=== PATIENT | female | born 1970 | race Caucasian/White ===

== ENCOUNTER → 2017-10-02 16:00 | Outpatient (CLI) | payer MEDICAID, SELFPAY ==
[2017-10-03 15:13] LABS: Color, Urine Yellow (Yellow); Glucose, Dipstick Normal (Normal); Ketone-Dipstick 5 mg/dl (Negative); Leukocyte Esterase-Dipstick 25 /ul (Negative); Nitrite-Dipstick Negative (Negative); Occult Blood-Urine 50 /ul (Negative); Protein-Dipstick 15 mg/dl (Negative); Urine Bilirubin Dipstick 1 mg/dL (Negative); Urine Clarity Clear (Clear); Urine Urobilinogen 1 mg/dl (Normal)
[2017-10-03 15:17] LABS: Bacteria 0 SEEN /hpf (None Seen); Mucous, Urine 0 SEEN /hpf (<or=2+); Red Blood Cells-Urine 0 SEEN /hpf (0-5)
[2017-10-03 15:18] LABS: Calcium Oxalate Crystals Ur 1+ /hpf (<or=2+); Squamous Epithelial Cells - UA 0-5 SEEN /hpf (5-10); White Blood Cells 0-5 SEEN /hpf (0-5)
== END ==
PROVIDERS: Visit Provider Physician Assistant Surgical
DX: R10.9 Unspecified abdominal pain (principal)
CPT/HCPCS: 81001; 87086

== ENCOUNTER → 2017-10-09 09:58 | Outpatient (CLI) | payer MEDICAID, SELFPAY ==
--- NOTE | 2017-10-09 10:03 | US_ITS ---
STUDY: ABDOMINAL ULTRASOUND - RIGHT UPPER QUADRANT REASON FOR VISIT: Female, 47 years old. Right upper quadrant pain. TECHNIQUE: Ultrasound evaluation of the right upper quadrant was performed with real-time and static lombardi-scale imaging. TECHNICAL QUALITY: Adequate. COMPARISON: 09/13/2015. FINDINGS: Liver: The liver measures 16 cm. There is normal echogenicity of the liver. The bile ducts are within normal limits. There is hepatic color flow. The direction of portal flow is hepatopetal. There is a 2.3 cm cyst of the right lobe. Gallbladder: The patient is status post cholecystectomy. Common Bile Duct (C.B.D.): The common bile duct measures 8 mm. Pancreas: Normal size of the head, body and tail of the pancreas. There is normal echogenicity of the pancreas. There is no demonstrated pancreatic mass or cyst. Right Kidney: Normal size of the right kidney. The right kidney measures 11.2 cm. Normal renal cortex. The right cortex measures 1.7 cm. There is no demonstrated renal mass or cyst. There is no right hydronephrosis. US/Abdomen Limited IMPRESSION: Mild distention of common bile duct status post cholecystectomy. No definite acute abnormality. Electronically Signed: Delmar Simpson MD at 22:01 EDT , Service support ,
[2017-10-09 13:59] LABS: Absolute Lymphocyte Count 3.85 X10^3/ul (0.83-4.51); Absolute Neutrophil Count 2.8 X10^3/uL (2.0-7.7); Basophil# 0.12 X10^3/uL; Basophil% 1.6 % (0-1); Eosinophil# 0.17 X10^3/uL; Eosinophils% 2.2 % (0-5); Hematocrit 40.7 % (37-47); Hemoglobin 13.8 g/dl (12.0-15.0); Lymphocyte # 3.85 X10^3/ul (4.0); Lymphocyte % 49.9 % (19-41); Mean Corp Hgb Conc 33.9 g/gl (32-36); Mean Corpuscular Hgb 28.6 pg (27.0-32.0); Mean Corpuscular Volume 84.3 fL (81-99); Monocyte# 0.74 X10^3/uL; Monocyte% 9.6 % (0-10); Neutrophil # 2.83 X10^3/uL (2.7-7.7); Neutrophil % 36.6 % (47-70); Platelet Count 198 K/mm3 (150-450); Red Blood Count 4.83 M/mm3 (4.2-5.4); White Blood Count 7.7 K/mm3 (4.4-11.0)
[2017-10-09 14:00] LABS: POSITIVE COUNT NO; POSITIVE DIFFERENTIAL NO; POSITIVE MORPHOLOGY NO
[2017-10-09 14:09] LABS: ALB/GLOB Ratio 0.9 RATIO (0.9-2.4); AST(SGOT) 86 U/L (15-37); Alanine Aminotransfer ALT/SGPT 113 U/L (13-56); Albumin, Serum 2.9 g/dL (3.2-5.0); Alkaline Phosphatase 106 U/L (45-117); Anion Gap 6 (5-15); BUN 7 mg/dL (7-18); BUN/Creat Ratio 10.2 RATIO (10-20); Chloride 107 mmol/L (98-107); Creatinine, Serum 0.68 mg/dL (0.55-1.02); EST Glomerular Filtration Rate 97 mL/min (>60); Est Glom Filt Rate - Afr Amer 118 mL/min (>60); Globulin 3.3 g/dL (2.2-4.2); Glucose 99 mg/dL (74-106); Potassium 4.3 mmol/L (3.5-5.1); Protein, Total 6.2 g/dL (6.4-8.2); Sodium Level 140 mmol/L (136-145)
== END ==
PROVIDERS: Family Medicine; Family Provider Internal Medicine; PCP Internal Medicine; Visit Provider Internal Medicine
DX: R10.11 Right upper quadrant pain (principal)
CPT/HCPCS: 36415; 76705; 80053; 85025

== ENCOUNTER 2017-10-14 21:10 | Inpatient (IN) | payer MEDICAID, SELFPAY ==
[2017-10-14 21:10] VITALS: BP 104/68; PULSE 110; RESP 18; TEMP 37.1; O2SAT 96; BMI 33.5
--- NOTE | 2017-10-14 21:19 | EKG12_ITS ---
Test Reason : SOB Blood Pressure : / mmHG Vent. Rate : 096 BPM Atrial Rate : 096 BPM P-R Int : 138 ms QRS Dur : 086 ms QT Int : 338 ms P-R-T Axes : 063 038 017 degrees QTc Int : 427 ms Normal sinus rhythm Low voltage QRS (limb leads) Confirmed by UDAY SEVERINO, EDMI ([id number]), website/blog editor JESUS ELLIOTT ([id number]) on 10/17/2017 2:47:39 PM Referred By: Alcides Elder Confirmed By:DEMI FRYE MD
--- NOTE | 2017-10-14 21:19 | CT_ITS ---
STUDY: CTA CHEST REASON FOR EXAM: Female, 47 years old. SOB RADIATION DOSAGE (If Supplied By Facility): CTDIvol = ( 17.56 ) mGy, DLP = ( 636.43 ) mGycm TECHNIQUE: The examination was performed with the intravenous administration of 100 ml of Isovue 370 contrast material. Post-processing of the angiographic images was performed, with multiplanar reformation and 3D reconstruction. Individualized dose optimization techniques were used for this CT. COMPARISON: None. FINDINGS: The contrast bolus is suboptimal for detecting small or distal pulmonary emboli. Emboli cannot be excluded involving the artery of the right lower lobe anterior basilar segment. No large or central pulmonary emboli are seen. Normal thoracic aorta and visualized great vessels. There is no demonstrated aortic dissection. Normal heart and pericardium. Normal mediastinum. Normal hilar regions. Normal visualized trachea and bronchi. Focal right lower lobe alveolar disease could represent pneumonia or pulmonary infarct. Normal pleura. Normal chest wall structures. Normal osseous structures. Normal visualized upper abdomen. CT/CTA Chest W/WO Contrast IMPRESSION: The contrast bolus is suboptimal for detecting small or distal pulmonary emboli. Emboli cannot be excluded involving the artery of the right lower lobe anterior basilar segment. No large or central pulmonary emboli are seen. Focal right lower lobe anterior basal segment pneumonia versus pulmonary infarct. N.B. : The above information has been verbally conveyed by Estiven De La oRsa MD to James Wilkinson, Covering Physician, on 10/14/2017 22:15:20 (ET). Electronically Signed: Estiven De La Rosa MD at 22:20 EDT Tel , Service support , N.B. : The above information has been verbally conveyed by Estiven De La Rosa MD to James Wilkinson, Covering Physician, on 10/14/2017 22:15:20 (ET).
--- NOTE | 2017-10-14 21:21 | ED.VISSUMM ---
- ER Visit Summary Date of Service: 10/14/17 Chief Complaint: Shortness of breath History of Present Illness: The patient is a 47 F who presents with shortness of breath. Started today. She has been having some sharp pains under her right breast. 4 days ago she started having some calf pain but that has since resolved. She has had a slight cough. It is productive of clear sputum. She has no cardiac history. She is concerned about PE as her father has terrible veins. He is on Coumadin. Patient has no DVT or PE risk factors. Physical Examination: Vital signs reviewed. HEENT exam unremarkable. Heart is regular rate and rhythm without murmurs. Lungs are clear to auscultation. Abdomen is soft and nontender. Extremities reveal no edema. Peripheral pulses are equal. Skin exam normal. Neurologic exam normal. Test Results: EKG normal sinus rhythm with rate of [address] changes. Labs are normal. CT of the chest is a suboptimal IV dye bolus. There is a questionable PE in the right lower segment. There is also a question of pneumonia versus infarct of the right lower lobe Emergency Department Course and Treatment: I discussed this with the radiologist. He is concerned about PE but cannot rule out a pneumonia. At this point I feel the safest for the patient be admitted and get further testing. I will treat her with 1 dose of Lovenox tonight. I will start her on Levaquin in case this is pneumonia. Patient will be discussed with the hospitalist for admission Treatment Plan: [] Disposition: Admit Impression: Right lower chest pain, concern for PE This note was generated with [facility] [employer] dictation software. It may contain incorrect words, spelling, and punctuation that were not noted in review of the chart prior to signing ED Disposition - Plan for ED Patient: Chief Complaint: Shortness of Breath Referrals: Alcides Elder MD [Primary Care Provider] -
[2017-10-14 21:30] VITALS: BP 151/66; PULSE 90; RESP 18; O2SAT 98
[2017-10-14] MEDS: Aspirin 81 MG TAB.CHEW 324 MG PO (21:33)
[2017-10-14 21:35] VITALS: O2SAT 95
[2017-10-14 21:41] LABS: Absolute Lymphocyte Count 3.21 X10^3/ul (0.83-4.51); Basophil# 0.03 X10^3/uL; Basophil% 0.4 % (0-1); Eosinophil# 0.14 X10^3/uL; Eosinophils% 1.7 % (0-5); Hematocrit 40.6 % (37-47); Hemoglobin 13.2 g/dl (12.0-15.0); Lymphocyte # 3.21 X10^3/ul (4.0); Lymphocyte % 39.9 % (19-41); Mean Corp Hgb Conc 32.5 g/gl (32-36); Mean Corpuscular Hgb 27.6 pg (27.0-32.0); Mean Corpuscular Volume 84.8 fL (81-99); Monocyte# 0.69 X10^3/uL; Monocyte% 8.6 % (0-10); Neutrophil # 3.97 X10^3/uL (2.7-7.7); Neutrophil % 49.3 % (47-70); Platelet Count 220 K/mm3 (150-450); RBC Distribution Width SD 43.9 fl (35.1-43.9); Red Blood Count 4.79 M/mm3 (4.2-5.4); White Blood Count 8.1 K/mm3 (4.4-11.0)
[2017-10-14 21:44] LABS: POSITIVE COUNT NO; POSITIVE DIFFERENTIAL NO; POSITIVE MORPHOLOGY NO
[2017-10-14 21:57] LABS: Anion Gap 5 (5-15); BUN 7 mg/dL (7-18); BUN/Creat Ratio 9.4 RATIO (10-20); Calcium,Total 8.2 mg/dL (8.5-10.1); Chloride 106 mmol/L (98-107); Creatinine, Serum 0.74 mg/dL (0.55-1.02); EST Glomerular Filtration Rate 89 mL/min (>60); Est Glom Filt Rate - Afr Amer 107 mL/min (>60); Estimated Creatinine Clearance 93.79 ml/min; Glucose 93 mg/dL (74-106); Sodium Level 139 mmol/L (136-145)
[2017-10-14 22:24] VITALS: BP 109/62; PULSE 88; RESP 14; O2SAT 95
[2017-10-14 22:30] VITALS: BP 107/68; PULSE 86; RESP 17; O2SAT 97
[2017-10-14] MEDS: Enoxaparin 100 MG/ML Syringe SC (22:51)
[2017-10-14] MEDS: levoFLOXacin IV 750 MG/150 ML BAG 100 MG IV (22:51)
[2017-10-14 23:03] VITALS: BP 120/67; PULSE 87; RESP 18; O2SAT 94
--- NOTE | 2017-10-14 23:41 | PCM.HP.STD ---
Problem List (1) Pulmonary embolus and infarction Status: Acute (2) CAP (community acquired pneumonia) Status: Acute (3) Hematuria of undiagnosed cause Status: Acute (4) Right upper quadrant abdominal pain Status: Chronic History of Present Illness Date of Admission: 10/14/17 Chief Complaint: Right leg pain The patient is a 47 year old female w/ h/o abdominal pain admitted for CAP / PE. Pt c/o right calf pain that started on Sunday / Sunday. Pain was mild, aching. Pain resolved after a day or two but came back. Pain was associated with right breast pain and epigastric pain. Pain was dull aching. Nothing made it better or worse. Pain was not associated with SOB or palpitation. She has a family history of vascular disease and came to the ED for further workup. Past Medical History Past Medical History (Chronic Problems): Chronic Problems (Last Reviewed 10/04/17 @ 17:33 by Vandana Sutton) Right upper quadrant abdominal pain (Chronic) Allergies latex Allergy (Verified 10/14/17 21:10) Unknown Penicillins Allergy (Verified 10/14/17 21:10) Unknown Home Medications: Ambulatory Orders Medication Instructions Recorded RX: Cholecalciferol (Vitamin D3) 2,000 unit PO DAILY 06/17/16 [Vitamin D3] RX: Multivitamin [Daily Multiple 1 ea PO DAILY 06/17/16 Vitamin] RX: [place]-3 Fatty Acids [Fish Oil] 1,000 mg PO DAILY 06/17/16 Surgical History: - - Tubal ligation Psychiatric History: No pertinent psych hx PROCESSOR GRAIN History: No pertinent PROCESSOR GRAIN history Smoking Status: Current every day smoker Alcohol: None Drugs: None - *Family History Paternal History Items: - - Vascular disease Review of Systems Constitutional: Denies: Chills, Fever, Weight Change HEENT: Denies: Head Aches, Sinus Congestion, Sinus Drainage Cardiovascular: Denies: Chest Pain, Palpitations Respiratory: Reports: Cough, Sputum production. Denies: Shortness of breath at rest Gastrointestinal: Denies: Abdominal Pain, Nausea, Vomiting Genitourinary: Denies: Dysuria Musculoskeletal: Reports: Muscle pain. Denies: Joint Pain, Joint Tenderness Skin: Denies: Rash, Wounds Neurological: Denies: Numbness, Tingling, Focal weakness Psychiatric: Denies: Anxiety, Depression, Homicidal Ideations, Suicidal Ideations Hematologic/ Lymphatic: Denies: Easy Bruising, Easy Bleeding VTE Information - Inpt Only VTE Present on Admission: No VTE Mechan Device Prophylaxis: SCD's VTE Pharm Prophylaxis ordered?: Yes Patient Problems: Active and Suspected Problems (Last Reviewed 10/04/17 @ 17:33 by Vandana Sutton) Pulmonary embolus and infarction (Acute) CAP (community acquired pneumonia) (Acute) - Physical Exam General: Alert, Oriented x3, Cooperative HEENT: Atraumatic, PERRLA, EOMI, Normocephalic Neck: Supple, No JVD, Negative Carotid Bruits Lungs: Diminished, Rales Cardiovascular: Regular rate, No murmurs Abdomen: Bowel Sounds Present, Soft, Non Tender Extremities: No edema, Capillary Refill Less than 3 Seconds Skin: No rashes, No breakdown Musculoskeletal: No Tenderness to Palpation of Joints or Extremities Neurological: Cranial nerves II-XII grossly intact Psych/Mental Status: Normal Affect, Appropriate Vital Signs Temp Pulse Resp BP Pulse Ox 98.7 F 87 18 120/67 94 10/14/17 21:10 10/14/17 23:03 10/14/17 23:03 10/14/17 23:03 10/14/17 23:03 Oxygen Delivery Method Room Air Weight: 100 kg Body Mass Index (BMI) 33.5 Laboratory Tests Past 24 Hrs 10/14/17 10/14/17 21:27 21:27 WBC 8.1 RBC 4.79 Hgb 13.2 Hct 40.6 MCV 84.8 MCH 27.6 MCHC 32.5 RDW 14.0 RDW Differential 43.9 Plt Count 220 MPV 9.0 Immature Gran % (Auto) 0.100 Neut % (Auto) 49.3 Lymph % (Auto) 39.9 [place] % (Auto) 8.6 Eos % (Auto) 1.7 Baso % (Auto) 0.4 Absolute Neuts (auto) 4.0 Absolute Lymphs (auto) 3.21 Total Counted Not Reportable Sodium 139 Potassium 4.0 Chloride 106 Carbon Dioxide 28.0 Anion Gap 5 BUN 7 Creatinine 0.74 Estim Creat Clear Calc 93.79 Est GFR (MDRD) Af Amer 107 Est GFR (MDRD) Non-Af 89 BUN/Creatinine Ratio 9.4 L Glucose 93 Calcium 8.2 L Troponin I < 0.015 Assessment/Plan Active and Suspected Problems (Last Reviewed 10/04/17 @ 17:33 by Vandana Sutton) Pulmonary embolus and infarction (Acute) CAP (community acquired pneumonia) (Acute) 47 year old female w/ h/o abdominal pain admitted for CAP / PE. 1) PE: CT disclosed questionable PE / pneumonia / infarct. Will anticoagulate. Will repeat CTA after 24 hrs. C/w hydration. 2) CAP: She has cough but no fever or chill. Will start ceftriaxone and azithromycin. Cultures pending. Monitor. 3) Right leg pain: Will get US to evaluate for possible DVT. Anticoagulate in the meantime. Monitor.
[2017-10-15] VITALS (12 sets, daily range): BP systolic 97–132; BP diastolic 48–74; PULSE 85–95; RESP 12–18; TEMP 37–37.7; O2SAT 93–98; BMI 32.8
[2017-10-15] MEDS: 0.9% Normal Saline 1,000 ML 125 ML IV ×2 (01:15→09:09)
[2017-10-15 02:32] LABS: Color, Urine Yellow (Yellow); Glucose, Dipstick Normal (Normal); Ketone-Dipstick Negative (Negative); Leukocyte Esterase-Dipstick Negative /ul (Negative); Nitrite-Dipstick Negative (Negative); Occult Blood-Urine 10 /ul (Negative); Protein-Dipstick 15 mg/dl (Negative); Urine Bilirubin Dipstick Negative (Negative); Urine Clarity Sl. Cloudy (Clear); Urine Urobilinogen Normal (Normal); Urine pH 6.5 (5.0 - 8.0)
--- NOTE | 2017-10-15 05:55 | VDLE_ITS ---
Reason For Study: LEG PAIN RIGHT LEFT GSV is normal. GSV is normal. CFV is compressible, spontaneous, phasic, CFV is compressible, spontaneous, phasic, competent and demonstrates normal competent, and demonstrates normal augmentation. augmentation. FV is compressible, spontaneous, phasic, FV is compressible, spontaneous, phasic, competent and demonstrates normal competent and demonstrates normal augmentation. augmentation. POP V is compressible, spontaneous, phasic, POP V is compressible, spontaneous, phasic, competent and demonstrates normal competent and demonstrates normal augmentation. augmentation. T/P Trunk is compressible. T/P Trunk is compressible. PTV is compressible. PTV is compressible. Acute deep vein thrombosis is noted in the LT PerV is compressible. right peroneal vein. Procedure Exam performed portable in patient room. A preliminary report was called and/or faxed to [facility] charge nurse. Interpretation Summary Acute deep vein thrombosis is noted in the right peroneal vein. The remainder of the right lower extremity deep venous system is patent and compressible. Deep veins of the left lower extremity are patent and compressible segmentally. There is no evidence of left lower extremity deep vein thrombosis. Valvular competence appears intact within the proximal deep venous systems bilaterally. The greater saphenous veins appear bilaterally patent and compressible segmentally. Ordering Physician: Elaido Motley Referring Physician: Alcides Elder Performed By: Shruthi Rod RVT
[2017-10-15] MEDS: levoFLOXacin IV 500 MG/100 ML BAG 100 MG IV (09:09)
[2017-10-15] MEDS: Multivitamins,Therapeutic Tablet 1 TABLET PO (09:10)
[2017-10-15] MEDS: Omega-3 Acid Ethyl Esters 1 GM Capsule PO (09:10)
[2017-10-15] MEDS: Enoxaparin 100 MG/ML Syringe SC ×2 (09:10→22:37)
--- NOTE | 2017-10-15 13:27 | PCM.PROGNOTE ---
Patient Problems: Active and Suspected Problems (Last Reviewed 10/04/17 @ 17:33 by Vandana Sutton) Pulmonary embolus and infarction (Acute) CAP (community acquired pneumonia) (Acute) Subjective: Patient is a 47-year-old female presented to the emergency department at [facility] on 10/14/2017 complaining of right chest pain and shortness of breath. She was afebrile at presentation to the emergency room with a heart rate of 110 bpm and a blood pressure of 104/68. She was 96-98% saturated on room air. CBC and BMP were unremarkable. Troponin was less than 0.015. Since there was a history of VTE and her father a CTA of the chest was done and was a less than optimal study. There were no large or central pulmonary emboli but the contrast bolus was suboptimal for detecting smaller distal pulmonary emboli. She does have DVT in the right peroneal vein on venous US. Hypercoagulable W/U was not ordered prior to starting Lovenox. Continues to c/o r chest pain which is exacerbated by taking a deep breath. She is also having right calf pain. Denies hemoptysis. She is afebrile and vital signs are stable. She is 93-94% saturated on room air. Objective: PHYSICAL EXAM: GENERAL: alert, oriented X 3, Cooperative, NAD ORAL: moist mucosa, no mucosal lesions NECK: No JVD, supple, trachea midline LUNGS: there were initially decreased breath sounds in the R base because she is splinting her respirations....when she finally took a deep breath she had coarse crackles in the R base, the left lung is CTA, symmetric chest expansion, conversational dyspnea, not tachypneic, no accessory muscle use HEART: RRR, Normal S1 and S2, no rub, no gallop, no murmur ABDOMEN: soft, NT, ND, BS present, no guarding with palpation EXTREMITIES: no edema, no cyanosis, + R calf tenderness SKIN: No rashes, no breakdown NEUROLOGIC: no focal neurologic deficits PSYCH: appropriate, normal affect, pleasant TELEMETRY: NSR with no significant ectopy - Physical Exam Lungs: Rales - R base Vital Signs Temp Pulse Resp BP Pulse Ox 99.0 F 93 12 116/59 L 94 10/15/17 09:19 10/15/17 11:00 10/15/17 09:19 10/15/17 09:19 10/15/17 09:19 Oxygen Delivery Method Room Air Weight: 222 lb 7.143 oz Body Mass Index (BMI) 32.8 Intake and Output for Last 24 Hours 10/13/17 10/14/17 10/15/17 23:59 23:59 23:59 Intake Total 2260 / 2260 Output Total 2 / 2 Balance 2258 / 2258 Microbiology Past 72 Hours 10/15/17 02:05 Streptococcus pneumoniae Antigen (M - Final Urine, Clean Catch 10/15/17 02:05 Legionella Antigen - Final Urine, Clean Catch 10/15/17 00:45 Influenza Types A,B Direct FA (SUSY) - Final Mucosa - Nose Laboratory Tests Past 24 Hrs 10/15/17 02:05 Urine Color Yellow Urine Clarity Sl. Cloudy Urine pH 6.5 Ur Specific [place] 1.010 Urine Protein 15 H Urine Glucose (UA) Normal Urine Ketones Negative Urine Occult Blood 10 H Urine Nitrite Negative Urine Bilirubin Negative Urine Urobilinogen Normal Ur Leukocyte Esterase Negative Medical Necessity - Tobacco Use Smoking Status: Current every day smoker Assessment/Plan Active and Suspected Problems (Last Reviewed 10/04/17 @ 17:33 by Vandana Sutton) Pulmonary embolus and infarction (Acute) CAP (community acquired pneumonia) (Acute) Impression: 1. R LE DVT with suspected PE. Will not repeat the CT scan and expose her to unnecessary dye. Clinically presentation and physical findings are consistent with a PE. 2. obesity 3. Tobacco dependence 4.. possible FH of a hypercoagulable disorder 5. CAP ruled out Smoking cessation counselling given Will need a hypercoagulable W/U at the conclusion of 6 months of anticoagulation Will check on the co-pay for Xarelto in the AM and likely DC on Xarelto Continue Lovenox for now. IS and encouraged her to do this hourly for 10 breaths while awake DC the antibiotics Code Visit Inpatient E&M: 79185 Subs Hosp L2
[2017-10-15] MEDS: HYDROcodone Bitartrate/Apap 5/325 Tablet PO (15:55)
[2017-10-16] VITALS (7 sets, daily range): BP systolic 111–131; BP diastolic 52–62; PULSE 78–88; RESP 14–16; TEMP 36.7–37.3; O2SAT 95–97
[2017-10-16] MEDS: Omega-3 Acid Ethyl Esters 1 GM Capsule PO (08:53)
[2017-10-16] MEDS: Multivitamins,Therapeutic Tablet 1 TABLET PO (08:54)
[2017-10-16] MEDS: Enoxaparin 100 MG/ML Syringe SC (08:54)
--- NOTE | 2017-10-16 09:46 | CASEMGMT ---
Per Dr. Acevedo, pt to be sent home on Funium and script sent to [facility] at this time. This RN CM will place call to [facility] to check burt. SStanna RN CM
--- NOTE | 2017-10-16 11:25 | CASEMGMT ---
This BEATA MILLER spoke with Yasmeen at [facility] and she states that pt has no co-pay for Xarelto at this time. Dr. Acevedo aware at this time. Emily COTA CM
--- NOTE | 2017-10-16 11:43 | CASEMGMT ---
Face to Face with patient for initial transition planning/care coordination assessment. BEATA MILLER introduced self and role at [facility], pt voices understanding and consents to assessment at this time. Pt is sitting up in bed in no distress at this time. Pt is A/O x4 at this time and answers all questions appropriately at this time. Care providers, pharmacy, and demographics verified. See attached link. Pt voices no further concerns/needs at this time. Advised pt to ask for CM if any further questions/concerns/needs arise, voices understanding. PLAN: [place] BEATA MILLER
--- NOTE | 2017-10-16 16:12 | PCM.DC ---
- Discharge Diagnoses Current Active Problems: Current Active and Chronic Problems (Last Reviewed 10/04/17 @ 17:33 by Vandana Sutton) Pulmonary embolus and infarction (Acute) CAP (community acquired pneumonia) (Acute) You will use the following diet at home:: No restrictions Your food should be the consistency of: Regular Your liquids should be the consistency of: Regular/Thin Discharge Activity: - - You may get more winded with exercise than normal so take it easy. Also, you are on a blood thinner so, no contact sports, no bungee jumping, no hang gliding or any other activity/sport that could lead to head trauma or injury Call your doctor if you observe: Fever of 101 or Higher, Shortness of breath, Dizziness, Fainting spells, Swelling in the ankles, Chest pain, - - nosebleeds, bleeding from the gums, bleeding from the rectum, large bruises with no history of injury. Additional Instructions: If you cut yourself hold pressure for a full 10 minutes without peeking. If you get bumped then apply ice immediately to limit the size of the bruise. You will need to be on anticoagulation for 6 months. 2 weeks after you finish anticoagulation you will need to get blood work done to make sure you do not have a hypercoagulable disorder...these can be inherited. Smoking and control pills both increase risk for blood clots. Stop smoking! Allergies/Adverse Reactions: Allergies latex Allergy (Verified 10/14/17 21:10) Unknown Penicillins Allergy (Verified 10/14/17 21:10) Unknown Medications to take at Discharge Cholecalciferol (Vitamin D3) [Vitamin D3] 2,000 unit PO DAILY 06/17/16 Multivitamin [Daily Multiple Vitamin] 1 ea PO DAILY 06/17/16 [employer]-3 Fatty Acids [Fish Oil] 1,000 mg PO DAILY 06/17/16 Rivaroxaban [Xarelto] 1 tab PO UD #51 tab 10/16/17 The following prescriptions were given: Rivaroxaban [Xarelto] 1 tab PO UD #51 tab Primary Care Physician: Alcides Elder MD [Primary Care Provider] - Please follow up with your Primary Care Physician in: 1-2 weeks Proposed Discharge Date: 10/16/17
--- NOTE | 2017-10-16 16:22 | PCM.DC.SUM ---
Discharge Date and Diagnosis - Problem List Patient Problems: Active and Suspected Problems (Last Reviewed 10/04/17 @ 17:33 by Vandana Sutton) Obesity (BMI 30.0-34.9) (Acute) Right leg DVT (Acute) Pulmonary embolus and infarction (Acute) Date of Admission: 10/14/17 Date of Discharge: 10/16/17 - Primary Discharge Diagnosis Active and Suspected Problems (Last Reviewed 10/04/17 @ 17:33 by Vandana Sutton) Right leg DVT (Acute) Pulmonary embolus and infarction (Acute) - suspected Obesity (BMI 30.0-34.9) (Acute) - Secondary Discharge Diagnosis Chronic Problems (Last Reviewed 10/04/17 @ 17:33 by Vandana Sutton) Tobacco dependence (Chronic) Right upper quadrant abdominal pain (Chronic) Hospital Course and Treatment Imaging Results: Clinical Impression(s) from Imaging Studies Chest CTA 10/14/17 21:19 IMPRESSION: The contrast bolus is suboptimal for detecting small or distal pulmonary emboli. Emboli cannot be excluded involving the artery of the right lower lobe anterior basilar segment. No large or central pulmonary emboli are seen. Focal right lower lobe anterior basal segment pneumonia versus pulmonary infarct. N.B. : The above information has been verbally conveyed by Estiven De La Rosa MD to James Wilkinson, Covering Physician, on 10/14/2017 22:15:20 (ET). Electronically Signed: Estiven De La Rosa MD at 22:20 EDT Tel , Service support , N.B. : The above information has been verbally conveyed by Estiven De La Rosa MD to James Wilkinson, Covering Physician, on 10/14/2017 22:15:20 (ET). none Operations: None Procedures: None Summary of Care Provided: The patient is a 47-year-old female with a PMH of tobacco dependence who presented to the emergency department at [facility] on 10/14/2017 complaining of right chest pain and shortness of breath. She was afebrile at presentation to the emergency room with a heart rate of 110 bpm and a blood pressure of 104/68. She was 96-98% saturated on room air. CBC and BMP were unremarkable. Troponin was less than 0.015. Since there was a history of VTE in her father a CTA of the chest was done and was a less than optimal study. There were no large or central pulmonary emboli but the contrast bolus was suboptimal for detecting smaller distal pulmonary emboli. She does have DVT in the right peroneal vein on venous US. Hypercoagulable W/U was not ordered prior to starting Lovenox. A repeat CTA of the chest was ordered and then cancelled because we did not want to repeat the dye load and cause damage to the kidneys. The Peroneal Vein is in the distal LE but she has calf pain, she also has pleuritic chest pain and there is a possible hypercoagulable disorder in her father so the decision was made to anticoagulate. She Was initially on Lovenox and then transitioned to Xarelto. She had no significant ectopy or dysrhythmia on telemetry. The time of discharge her temperature was 99, pulse rate 81, blood pressure 131/62, respiratory rate 14 and she was 95-97% saturated on room air. He was given a prescription for Xarelto and instructed to take 15 mg twice daily for 3 weeks and then start 20 mg daily. He will follow-up with Dr. Elder in the office in 1-2 weeks. 2 weeks after the anticoagulant is discontinued she will need to have a hypercoagulable w/u ordered. She was advised to quit smoking. GENERAL: alert, oriented X 3, Cooperative, NAD ORAL: moist mucosa, no mucosal lesions NECK: No JVD, supple, trachea midline LUNGS: there were initially decreased breath sounds in the R base because she is splinting her respirations....when she finally took a deep breath she had coarse crackles in the R base, the left lung is CTA, symmetric chest expansion, conversational dyspnea, not tachypneic, no accessory muscle use HEART: RRR, Normal S1 and S2, no rub, no gallop, no murmur ABDOMEN: soft, NT, ND, BS present, no guarding with palpation EXTREMITIES: no edema, no cyanosis, + R calf tenderness SKIN: No rashes, no breakdown NEUROLOGIC: no focal neurologic deficits PSYCH: appropriate, normal affect, pleasant TELEMETRY: NSR with no significant ectopy This note was generated with [employer] software. It may contain incorrect words, spelling, and punctuation that were not noted in checking the note before signing. Discharge Activity: - - You may get more winded with exercise than normal so take it easy. Also, you are on a blood thinner so, no contact sports, no bungee jumping, no hang gliding or any other activity/sport that could lead to head trauma or injury Call your doctor if you observe: Fever of 101 or Higher, Shortness of breath, Dizziness, Fainting spells, Swelling in the ankles, Chest pain, - - nosebleeds, bleeding from the gums, bleeding from the rectum, large bruises with no history of injury. Home Medications: Medications to take at Discharge Cholecalciferol (Vitamin D3) [Vitamin D3] 2,000 unit PO DAILY 06/17/16 Multivitamin [Daily Multiple Vitamin] 1 ea PO DAILY 06/17/16 [place]-3 Fatty Acids [Fish Oil] 1,000 mg PO DAILY 06/17/16 Rivaroxaban [Xarelto] 1 tab PO UD #51 tab 10/16/17 Following Prescrptions Were Given to Patient: Rivaroxaban [Xarelto] 1 tab PO UD #51 tab Primary Care Physician: Alcides Elder MD [Primary Care Provider] - Please follow up with your Primary Care Physician in: 1-2 weeks Disposition: Home Minutes spent on discharge:: 30 Patient Condition:: Good Medical Necessity - Tobacco Use Smoking Status: Current every day smoker Meaningful Use Info Meaningful Use Diagnoses (Choose all that apply): VTE - VTE Anticoag overlap given w/in hospital stay or rx'd at dc?: No Pt receive overlap for 5 days?: No Reason overlap not ordered, prescribed, or given for 5 days: Treatment Not Indicated - discharged on Xarelto Code Visit Inpatient E&M: [id number] Disch Hosp
--- NOTE | 2017-10-16 16:36 | DS.PCM_ITS ---
Discharge Date and Diagnosis - Problem List Patient Problems: Active and Suspected Problems (Last Reviewed 10/04/17 @ 17:33 by Vandana Sutton) Obesity (BMI 30.0-34.9) (Acute) Right leg DVT (Acute) Pulmonary embolus and infarction (Acute) Date of Admission: 10/14/17 Date of Discharge: 10/16/17 - Primary Discharge Diagnosis Active and Suspected Problems (Last Reviewed 10/04/17 @ 17:33 by Vandana Sutton) Right leg DVT (Acute) Pulmonary embolus and infarction (Acute) - suspected Obesity (BMI 30.0-34.9) (Acute) - Secondary Discharge Diagnosis Chronic Problems (Last Reviewed 10/04/17 @ 17:33 by Vandana Sutton) Tobacco dependence (Chronic) Right upper quadrant abdominal pain (Chronic) Hospital Course and Treatment Imaging Results: Clinical Impression(s) from Imaging Studies Chest CTA 10/14/17 21:19 IMPRESSION: The contrast bolus is suboptimal for detecting small or distal pulmonary emboli. Emboli cannot be excluded involving the artery of the right lower lobe anterior basilar segment. No large or central pulmonary emboli are seen. Focal right lower lobe anterior basal segment pneumonia versus pulmonary infarct. N.B. : The above information has been verbally conveyed by Estiven De La Rosa MD to James Wilkinson, Covering Physician, on 10/14/2017 22:15:20 (ET). Electronically Signed: Estiven De La Rosa MD at 22:20 EDT Tel , Service support , N.B. : The above information has been verbally conveyed by Estiven De La Rosa MD to James Wilkinson, Covering Physician, on 10/14/2017 22:15:20 (ET). none Operations: None Procedures: None Summary of Care Provided: The patient is a 47-year-old female with a PMH of tobacco dependence who presented to the emergency department at [facility] on 2017 complaining of right chest pain and shortness of breath. She was afebrile at presentation to the emergency room with a heart rate of 110 bpm and a blood pressure of 104/68. She was 96-98% saturated on room air. CBC and BMP were unremarkable. Troponin was less than 0.015. Since there was a history of VTE in her father a CTA of the chest was done and was a less than optimal study. There were no large or central pulmonary emboli but the contrast bolus was suboptimal for detecting smaller distal pulmonary emboli. She does have DVT in the right peroneal vein on venous US. Hypercoagulable W/U was not ordered prior to starting Lovenox. A repeat CTA of the chest was ordered and then cancelled because we did not want to repeat the dye load and cause damage to the kidneys. The Peroneal Vein is in the distal LE but she has calf pain, she also has pleuritic chest pain and there is a possible hypercoagulable disorder in her father so the decision was made to anticoagulate. She Was initially on Lovenox and then transitioned to Xarelto. She had no significant ectopy or dysrhythmia on telemetry. The time of discharge her temperature was 99, pulse rate 81, blood pressure 131/62, respiratory rate 14 and she was 95-97% saturated on room air. He was given a prescription for Xarelto and instructed to take 15 mg twice daily for 3 weeks and then start 20 mg daily. He will follow-up with Dr. Elder in the office in 1-2 weeks. 2 weeks after the anticoagulant is discontinued she will need to have a hypercoagulable w/u ordered. She was advised to quit smoking. GENERAL: alert, oriented X 3, Cooperative, NAD ORAL: moist mucosa, no mucosal lesions NECK: No JVD, supple, trachea midline LUNGS: there were initially decreased breath sounds in the R base because she is splinting her respirations....when she finally took a deep breath she had coarse crackles in the R base, the left lung is CTA, symmetric chest expansion, conversational dyspnea, not tachypneic, no accessory muscle use HEART: RRR, Normal S1 and S2, no rub, no gallop, no murmur ABDOMEN: soft, NT, ND, BS present, no guarding with palpation EXTREMITIES: no edema, no cyanosis, + R calf tenderness SKIN: No rashes, no breakdown NEUROLOGIC: no focal neurologic deficits PSYCH: appropriate, normal affect, pleasant TELEMETRY: NSR with no significant ectopy This note was generated with timeplazzaation software. It may contain incorrect words, spelling, and punctuation that were not noted in checking the note before signing. Discharge Activity: - - You may get more winded with exercise than normal so take it easy. Also, you are on a blood thinner so, no contact sports, no bungee jumping, no hang gliding or any other activity/sport that could lead to head trauma or injury Call your doctor if you observe: Fever of 101 or Higher, Shortness of breath, Dizziness, Fainting spells, Swelling in the ankles, Chest pain, - - nosebleeds, bleeding from the gums, bleeding from the rectum, large bruises with no history of injury. Home Medications: Medications to take at Discharge Cholecalciferol (Vitamin D3) [Vitamin D3] 2,000 unit PO DAILY 06/17/16 Multivitamin [Daily Multiple Vitamin] 1 ea PO DAILY 06/17/16 [place]-3 Fatty Acids [Fish Oil] 1,000 mg PO DAILY 06/17/16 Rivaroxaban [Xarelto] 1 tab PO UD #51 tab 10/16/17 Following Prescrptions Were Given to Patient: Rivaroxaban [Xarelto] 1 tab PO UD #51 tab Primary Care Physician: Alcides Elder MD [Primary Care Provider] - Please follow up with your Primary Care Physician in: 1-2 weeks Disposition: Home Minutes spent on discharge:: 30 Patient Condition:: Good Medical Necessity - Tobacco Use Smoking Status: Current every day smoker Meaningful Use Info Meaningful Use Diagnoses (Choose all that apply): VTE - VTE Anticoag overlap given w/in hospital stay or rx'd at dc?: No Pt receive overlap for 5 days?: No Reason overlap not ordered, prescribed, or given for 5 days: Treatment Not Indicated - discharged on Xarelto Code Visit Inpatient E&M: [id number] Disch Hosp
[2017-10-16] MEDS: Rivaroxaban 15 MG Tablet PO (16:50)
== END 2017-10-16 17:18 | disposition home or self-care (01) | DRG 78 ==
LOC: ED 21:33 → PCU 10-15 00:08
PROVIDERS: Admitting Provider Internal Medicine; Emergency Provider Emergency Medicine; Family Provider Internal Medicine; PCP Internal Medicine; Visit Provider Internal Medicine
DX: I26.99 Other pulmonary embolism without acute cor pulmonale (principal); I82.491 Acute embolism and thrombosis of other specified deep vein of right lower extremity; J18.9 Pneumonia, unspecified organism; R31.9 Hematuria, unspecified; F17.200 Nicotine dependence, unspecified, uncomplicated; E66.9 Obesity, unspecified; Z68.32 Body mass index [BMI] 32.0-32.9, adult; Z86.718 Personal history of other venous thrombosis and embolism
CPT/HCPCS: 36415; 71275; 80048; 81002; 84484; 85025; 87040; 87449; 87804; 93005; 93970; 99283; 99406; J7030; Q9967; A4216

== ENCOUNTER → 2017-10-25 09:51 | Outpatient (CLI) | payer MEDICAID, SELFPAY ==
--- NOTE | 2017-10-25 09:51 | DT_ITS ---
This patient was seen during an EMR downtime October 22, 2017 - October 29, 2017. This patient may have a combination of paper and electronic documentation or all paper documentation. All documentation is viewable within the e-chart portion of [facility] for each patient visit.
--- NOTE | 2017-10-25 09:52 | MRI_ITS ---
STUDY: MR CHOLANGIOPANCREATOGRAPHY (MRCP) REASON FOR EXAM: Female, 47 years old. ruq abd pain, abnormal liver enzymes, dilated cbd; prior cholecystectomy TECHNIQUE: Standard MRCP technique was utilized. COMPARISON: Ultrasound October 09, 2017 FINDINGS: Gall Bladder: Gall bladder is surgically absent. Cystic duct: Normal with no demonstrated fixed filling defect. Intrahepatic ducts: Normal visualized intrahepatic ducts with no demonstrated fixed filling defect, dilation or stricture. Common hepatic duct: There is dilatation of the common hepatic duct at 7 mm. No filling defect is visualized. Common bile duct: Normal with no demonstrated fixed filling defect, dilation or stricture. Pancreatic duct: Normal with no demonstrated fixed filling defect, dilation or stricture. MRI/MRCP Abdomen without Contrast IMPRESSION: There is dilatation of the common hepatic duct. Electronically Signed: Sonja Mancilla MD at 13:59 EDT , Service support ,
== END ==
PROVIDERS: Family Provider Internal Medicine; PCP Internal Medicine; Visit Provider Internal Medicine
DX: R10.11 Right upper quadrant pain (principal)
CPT/HCPCS: 74181

== ENCOUNTER → 2018-02-20 10:33 | Outpatient (CLI) | payer MEDICAID, SELFPAY ==
[2018-02-20 12:37] LABS: AST(SGOT) 19 U/L (15-37); Alanine Aminotransfer ALT/SGPT 29 U/L (13-56); Albumin, Serum 3.5 g/dL (3.2-5.0); Alkaline Phosphatase 89 U/L (45-117); Bilirubin, Direct 0.11 mg/dL (0.00-0.30); Globulin 3.2 g/dL (2.2-4.2); Protein, Total 6.7 g/dL (6.4-8.2)
[2018-02-22 10:15] LABS: ANTINUCLEAR ANTIBODIES DIRECT Negative (Negative); Anti-Mitochondrial AB <20.0 Units (0.0-20.0); Anti-Smooth Muscle ABS 6 Units (0-19)
== END ==
PROVIDERS: Family Provider Internal Medicine; PCP Internal Medicine
DX: R10.11 Right upper quadrant pain (principal)
CPT/HCPCS: 36415; 80076; 83516; 86038

== ENCOUNTER 2018-11-15 14:09 | Emergency (ER) | payer MEDICAID, SELFPAY ==
[2018-11-12 13:37] VITALS: BMI 35.4
[2018-11-15 14:12] VITALS: BP 124/75; PULSE 81; RESP 15; TEMP 37.2; O2SAT 100; BMI 36.5
[2018-11-15 15:03] VITALS: O2SAT 98
--- NOTE | 2018-11-15 15:07 | CT_ITS ---
STUDY: CTA CHEST REASON FOR EXAM: Female, 48 years old. Shortness of breath. RADIATION DOSAGE (If Supplied By Facility): CTDIvol = ( 16.01 ) mGy, DLP = ( 542.59 ) mGycm TECHNIQUE: The examination was performed with the intravenous administration of 100 IV Isovue 370. Post-processing of the angiographic images was performed, with multiplanar reformation and 3D reconstruction. Individualized dose optimization techniques were used for this CT. COMPARISON: CTA of the chest, October 14, 2017. FINDINGS: Normal enhancement of the main pulmonary artery and right and left pulmonary arteries. Normal enhancement of the bilateral peripheral pulmonary arteries. There is no demonstrated pulmonary embolism. Normal thoracic aorta and visualized great vessels. There is no demonstrated aortic dissection. Normal heart and pericardium. Normal mediastinum. Normal hilar regions. Normal visualized trachea and bronchi. The lungs are well expanded. Normal pulmonary parenchyma. Normal pleura. Normal chest wall structures. Normal osseous structures. There are cysts in segments IVb and 3. Otherwise normal liver. Remainder of the upper abdomen appears grossly normal. CT/CTA Chest W/WO Contrast IMPRESSION: Normal CTA chest examination, without a demonstrated pulmonary embolism or arterial dissection. Electronically Signed: Christopher Grant DO at 16:39 EDT Tel [phone], Service support ,
--- NOTE | 2018-11-15 15:07 | EKG12_ITS ---
Test Reason : DIZZINESS Blood Pressure : / mmHG Vent. Rate : 074 BPM Atrial Rate : 074 BPM P-R Int : 144 ms QRS Dur : 090 ms QT Int : 390 ms P-R-T Axes : 054 028 025 degrees QTc Int : 432 ms Normal sinus rhythm with sinus arrhythmia Possible Left atrial enlargement Borderline ECG Confirmed by UDAY SEVERINO, DEMI ([id number]), editor magazine [employer]MER DOUGLASS ([id number]) on 11/18/2018 1:38:47 PM Referred By: BARBIE Confirmed By:DEMI FRYE MD
--- NOTE | 2018-11-15 15:11 | ED.DCSUM_ITS ---
- ER Visit Summary Date of Service: 11/15/18 Chief Complaint: Shortness of breath and left knee pain History of Present Illness: The patient is a 48 F with a history of factor V Leiden and on Xarelto for history of PEs and DVTs presents for shortness of breath today. Patient states she fell 5 days ago and landed on her left knee. The injury initially was healing well, but now it is been weepy with surrounding erythema and increased tenderness. For the last few days patient states she is felt weird. She feels fatigued, has been seeing spots in her vision like she is going to pass out, has felt lightheaded, and today she feels short of breath. She feels like she will take her breath and exhale and forget to breathing again. She denies any chest pain, fever, cough. She does vape and occasionally smokes marijuana, with no use in the last couple days. Physical Examination: Vital signs: afebrile, hemodynamically stable, no hypoxia on room air General: well nourished, well developed, in no distress Skin: warm, dry, no rash, no pallor HEENT: normocephalic and atraumatic; PERRL, EOMI, moist mucous membranes Cardiovascular: regular rate and rhythm without murmurs, no peripheral edema, 2+ pulses all distal extremities Respiratory: No increased work of breathing, lungs are clear to auscultation bilaterally, no rales, rhonchi or wheezing Abdominal: Abdomen is soft, nontender with normoactive bowel sounds, no guarding or rebound, no masses MSK: Moves all extremities, no deformities, normal strength, left knee has a large area of abrasion with granulation tissue in the center, surrounding vesicular rash of the skin and a ring of erythema and induration around the initial wound, tender to palpation, no active hemorrhage, positive weeping Neuro: Awake and alert, oriented ?4. No facial droop, sensation and motor function intact and symmetric Test Results: Abnormal Lab Results 11/15/18 11/15/18 11/15/18 15:10 15:10 15:10 WBC 8.3 RBC 4.98 Hgb 14.4 Hct 41.5 MCV 83.3 MCH 28.9 MCHC 34.7 RDW 13.7 RDW Differential 41.4 Plt Count 232 MPV 10.0 Immature Gran % (Auto) 0.100 Neut % (Auto) 56.6 Lymph % (Auto) 31.6 [place] % (Auto) 6.0 Eos % (Auto) 5.2 H Baso % (Auto) 0.5 Absolute Neuts (auto) 4.7 Absolute Lymphs (auto) 2.62 Total Counted Not Reportable PT 14.1 INR 1.1 APTT 30.5 Sodium 138 Potassium 4.1 Chloride 105 Carbon Dioxide 29.0 Anion Gap 4 L BUN 11 Creatinine 0.69 Estim Creat Clear Calc 99.49 Est GFR (MDRD) Af Amer 117 Est GFR (MDRD) Non-Af 97 BUN/Creatinine Ratio 16.0 Glucose 92 Calcium 9.0 Magnesium 1.8 Troponin I < 0.015 TSH 1.39 Clinical Impression(s) from Imaging Studies Chest CTA 11/15/18 15:07 IMPRESSION: Normal CTA chest examination, without a demonstrated pulmonary embolism or arterial dissection. Electronically Signed: Christopher Grant DO at 16:39 EDT Tel [phone], Service support , Medications Given Discontinued Medications Acyclovir (Zovirax) 800 mg PO X1 ONE Stop: 11/15/18 18:54 Last Admin: 11/15/18 19:25 Dose: 800 mg Documented by: ALVA Doxycycline Monohydrate (Doxycycline) 100 mg PO X1 ONE Stop: 11/15/18 18:54 Last Admin: 11/15/18 19:25 Dose: 100 mg Documented by: ALVA Sodium Chloride () 1,000 mls @ 1,000 mls/hr IV .Q1H ONE Stop: 11/15/18 16:06 Last Admin: 11/15/18 15:26 Dose: 1,000 mls/hr Documented by: [facility] Emergency Department Course and Treatment: Patient presents with feeling weird and some respiratory complaints, and does have a significant history of venous thromboembolism and factor V Leiden. She is on Xarelto, however given her significant history and the possibility of Xarelto failure, work-up was performed to evaluate for PE. EKG showed a sinus rhythm no ischemic changes. Labs were unremarkable. CT a of the chest showed no evidence of pulmonary embolism. Patient's knee was evaluated, and she states that she injured it, it initially was healing, and then it developed this weeping rash that looks very similar to a herpes simplex infection or other viral outbreak. 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 Patient was started on acyclovir for coverage of viral infection and doxycycline for coverage of bacterial infection. We discussed that her symptoms may be constitutional symptoms due to this infection on her knee. Patient is to follow-up with her doctor if not having improvement in a few days. Patient was discharged home. 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 It may contain incorrect words, spelling, and punctuation that were not noted in review of the chart prior to signing ED Disposition - Plan for ED Patient: Disposition: Home or Assisted Living Instructions: Cellulitis Prescriptions: Doxycycline 100 mg PO BID #20 cap Prescription Printed Acyclovir [Zovirax] 800 mg PO 5X/DAY #35 tab Prescription Printed Referrals: Alcides Elder MD [Primary Care Provider] - 3-5 Days if not improving Additional Instructions: Keep the wound on your knee clean and protected. Do not touch it. If you do touch it wash her hands immediately. Take the acyclovir for coverage of possible viral infection and the doxycycline for coverage of bacterial infection. You did not have a pulmonary embolism on your exam today. If you have any worsening of your condition or any new concerning symptoms, please return immediately to the emergency department for another evaluation.
[2018-11-15] MEDS: 0.9% Normal Saline 1,000 ML 1000 ML IV (15:26)
[2018-11-15 15:30] LABS: Absolute Lymphocyte Count 2.62 X10^3/ul (0.83-4.51); Absolute Neutrophil Count 4.7 X10^3/uL (2.0-7.7); Basophil# 0.04 X10^3/uL; Basophil% 0.5 % (0-1); Eosinophil# 0.43 X10^3/uL; Eosinophils% 5.2 % (0-5); Hematocrit 41.5 % (37-47); Hemoglobin 14.4 g/dl (12.0-15.0); Lymphocyte # 2.62 X10^3/ul (4.0); Lymphocyte % 31.6 % (19-41); Mean Corp Hgb Conc 34.7 g/gl (32-36); Mean Corpuscular Hgb 28.9 pg (27.0-32.0); Mean Corpuscular Volume 83.3 fL (81-99); Neutrophil # 4.69 X10^3/uL (2.7-7.7); Neutrophil % 56.6 % (47-70); Platelet Count 232 K/mm3 (150-450); RBC Distribution Width CV 13.7 % (11.6-14.6); RBC Distribution Width SD 41.4 fl (35.1-43.9); Red Blood Count 4.98 M/mm3 (4.2-5.4); White Blood Count 8.3 K/mm3 (4.4-11.0)
[2018-11-15 15:32] LABS: POSITIVE COUNT NO; POSITIVE DIFFERENTIAL NO; POSITIVE MORPHOLOGY NO
[2018-11-15 15:37] LABS: International Normalized Ratio 1.1; Prothrombin Time (Protime)PT. 14.1 SECONDS (11.7-14.9)
[2018-11-15 15:38] LABS: Partial Thromboplast Time 30.5 Seconds (24.1-36.2)
[2018-11-15 15:49] LABS: Anion Gap 4 (5-15); BUN 11 mg/dL (7-18); Chloride 105 mmol/L (98-107); Creatinine, Serum 0.69 mg/dL (0.55-1.02); EST Glomerular Filtration Rate 97 mL/min (>60); Est Glom Filt Rate - Afr Amer 117 mL/min (>60); Estimated Creatinine Clearance 99.49 ml/min; Glucose 92 mg/dL (74-106); Magnesium 1.8 mg/dL (1.6-2.6); Potassium 4.1 mmol/L (3.5-5.1); Sodium Level 138 mmol/L (136-145); Thyroid Stim Hormone (TSH) 1.39 uIU/mL (0.358-3.74)
[2018-11-15 18:46] VITALS: BP 126/78; PULSE 63; RESP 18; O2SAT 99
[2018-11-15 19:25] VITALS: BP 140/73; PULSE 89; RESP 18; O2SAT 99
[2018-11-15] MEDS: Doxycycline 100 MG CAPSULE PO (19:25)
[2018-11-15] MEDS: Acyclovir 800 MG Tablet PO (19:25)
== END 2018-11-15 19:30 | disposition home or self-care (01) ==
PROVIDERS: Emergency Provider Emergency Medicine; Family Provider Internal Medicine; PCP Internal Medicine
DX: L03.116 Cellulitis of left lower limb (principal); S80.212A Abrasion, left knee, initial encounter; W19.XXXA Unspecified fall, initial encounter; Y93.9 Activity, unspecified; Y92.9 Unspecified place or not applicable; Y99.9 Unspecified external cause status; D68.51 Activated protein C resistance; Z72.0 Tobacco use; Z79.01 Long term (current) use of anticoagulants; Z79.899 Other long term (current) drug therapy; Z86.711 Personal history of pulmonary embolism; Z86.718 Personal history of other venous thrombosis and embolism
CPT/HCPCS: 71275; 80048; 83735; 84443; 84484; 85025; 85610; 85730; 93005; 96360; 96361; 99285; J7030; Q9967; A4216

== ENCOUNTER → 2019-11-04 15:52 | Outpatient (CLI) | payer MEDICAID, SELFPAY ==
[2019-04-29 14:53] VITALS: BMI 34.7
--- NOTE | 2019-11-04 15:54 | BI_ITS ---
MAMMOGRAPHY - BILATERAL SCREENING REASON FOR EXAM: Female, 49 years old. Routine annual screening examination. PERTINENT HISTORY: Mother with breast cancer. Right axillary tenderness. TECHNIQUE: Digital bilateral breast rod (3D mammographic acquisition) in the CC and MLO projections. 2-D mediolateral oblique (MLO) and craniocaudad (CC) views of both breasts were obtained. CAD: Full Field Digital Mammography with Computer Added Detection was performed. COMPARISON: Comparison is made with prior study dated June 30, 2011. FINDINGS: Breast Composition: There are scattered areas of fibroglandular density. There are no dominant masses or suspicious calcifications. Stable 6.2 mm well-defined nodule in the central fatty hilum in the axillary region of the right breast suggestive of a small benign-appearing lymph node. No other significant abnormalities are identified. There has been no significant change since the prior study. BI/SCREEN MAMM (CAD) W/ROD BILAT IMPRESSION: Stable bilateral screening mammogram. Yearly follow-up mammogram recommended. (A) ASSESSMENT CATEGORY: BIRADS Category 2: Benign. A letter regarding these results will be sent to the patient by the facility within 30 days. Approximately 10% of breast cancers are not detected by mammography. A normal mammogram should not delay biopsy of a clinically suspicious abnormality. [id number] Electronically Signed: Taz Valladares, at 8:46 EDT , Service support ,
== END ==
PROVIDERS: PCP Internal Medicine; Referring Provider Nurse Practitioner Family; Visit Provider Nurse Practitioner Family
DX: Z12.31 Encounter for screening mammogram for malignant neoplasm of breast (principal); Z80.3 Family history of malignant neoplasm of breast
CPT/HCPCS: 77063; 77067

== ENCOUNTER → 2020-02-10 16:37 | Outpatient (CLI) | payer MEDICAID, SELFPAY ==
[2020-02-10 15:37] VITALS: BMI 34.7
--- NOTE | 2020-02-10 16:39 | RAD_ITS ---
STUDY: X-RAY - PELVIS AND LEFT HIP REASON FOR EXAM: Chronic left hip pain, difficulty standing at work. TECHNIQUE: 2 views of the pelvis and hip. COMPARISON: None. FINDINGS: Normal visualized soft tissue structures. Normal bilateral iliac wings, sacroiliac joints and visualized sacrum. Normal bilateral superior and inferior pubic rami. Normal pubic symphysis. Normal bilateral ischial tuberosities. Normal visualized femoral head. There is enthesopathy of the left greater trochanter. Normal acetabulum. Normal hip joint. RAD/Hip uni 4+ views with Pelvis IMPRESSION: Enthesopathy of the left greater trochanter. Otherwise, unremarkable x-ray examination of the pelvis and left hip. Electronically Signed: Mao Wood MD at 8:22 EDT Tel , Service support ,
== END ==
PROVIDERS: PCP Internal Medicine; Referring Provider Nurse Practitioner Family; Visit Provider Nurse Practitioner Family
DX: M76.892 Other specified enthesopathies of left lower limb, excluding foot (principal); G89.29 Other chronic pain
CPT/HCPCS: 73503

== ENCOUNTER 2020-09-29 10:04 | Outpatient (CLI) | payer MEDICAID, SELFPAY ==
[2020-02-10 15:37] VITALS: BMI 34.7
== END 2020-09-29 11:30 | disposition home or self-care (01) ==
LOC: IMMUN 10-04 10:04
PROVIDERS: PCP Internal Medicine; Visit Provider Family Medicine
DX: Z23 Encounter for immunization (principal)
CPT/HCPCS: 0001A; 91300

== ENCOUNTER 2021-08-03 11:43 | Outpatient (CLI) | payer MEDICAID, SELFPAY ==
[2021-08-03 12:14] LABS: Absolute Lymphocyte Count 2.38 X10^3/uL (0.83-4.51); Absolute Neutrophil Count 5.4 X10^3/uL (2.0-7.7); Basophil# 0.05 X10^3/uL; Basophil% 0.6 % (0-1); Eosinophil# 0.35 X10^3/uL; Hematocrit 45.1 % (37-47); Hemoglobin 15.2 g/dL (12.0-15.0); Lymphocyte # 2.38 X10^3/ul (0.83-4.51); Lymphocyte % 27.3 % (19-41); Mean Corp Hgb Conc 33.7 g/dL (32-36); Mean Corpuscular Hgb 28.9 pg (27.0-32.0); Mean Corpuscular Volume 85.7 fL (81-99); Mean Platelet Vol. 9.7 fl (6.2-12.0); Monocyte# 0.47 X10^3/uL; Monocyte% 5.4 % (0-10); NRBC Flagged by Analyzer 0 % (0-5); Neutrophil # 5.44 X10^3/uL (2.7-7.7); Neutrophil % 62.2 % (47-70); Platelet Count 295 K/mm3 (150-450); RBC Distribution Width CV 13.5 % (11.6-14.6); RBC Distribution Width SD 42.6 fl (35.1-43.9); Red Blood Count 5.26 M/mm3 (4.2-5.4); White Blood Count 8.7 K/mm3 (4.4-11.0)
[2021-08-03 12:51] LABS: Vitamin D,25 Hydroxy 26.1 ng/mL
[2021-08-03 12:56] LABS: AST(SGOT) 11 U/L (15-37); Alanine Aminotransfer ALT/SGPT 19 U/L (13-56); Albumin, Serum 3.6 g/dL (3.2-5.0); Alkaline Phosphatase 86 U/L (45-117); Anion Gap 6 (5-15); BUN 8 mg/dL (7-18); BUN/Creat Ratio 9.7 RATIO (10-20); Calcium,Total 9.1 mg/dL (8.5-10.1); Chloride 103 mmol/L (98-107); Cholesterol 221 mg/dL (200); Creatinine, Serum 0.83 mg/dL (0.55-1.02); EST Glomerular Filtration Rate 77 mL/min (>60); Est Glom Filt Rate - Afr Amer 93 mL/min (>60); Globulin 3.7 g/dL (2.2-4.2); Glucose 110 mg/dL (74-106); High Density Lipoprotein 54 mg/dL; Potassium 3.9 mmol/L (3.5-5.1); Protein, Total 7.3 g/dL (6.4-8.2); Sodium Level 139 mmol/L (136-145); Thyroid Stim Hormone (TSH) 1.46 uIU/mL (0.358-3.74); Triglycerides 161 mg/dL; Very Low Density Lipoprotein 32 mg/dL (5-40)
== END 2021-08-03 23:59 | disposition home or self-care (01) ==
LOC: BIMLAB 11:44
PROVIDERS: PCP Internal Medicine; Visit Provider Nurse Practitioner Family
DX: Z00.00 Encounter for general adult medical examination without abnormal findings (principal); E56.9 Vitamin deficiency, unspecified
CPT/HCPCS: 36415; 80053; 80061; 82306; 84443; 85025

== ENCOUNTER → 2022-02-08 | Outpatient (CLI) | payer MEDICAID, SELFPAY ==
--- NOTE | 2022-02-08 16:13 | BI_ITS ---
MAMMOGRAPHY - BILATERAL SCREENING 3-D TOMOSYNTHESIS REASON FOR EXAM: Female, 51 years old. screening PERTINENT HISTORY: No significant family history. TECHNIQUE: 2-D mammograms and 3-D Tomosynthesis of the breast (s) were performed. CAD was performed. COMPARISON: 11/04/2019 FINDINGS: The breast composition is composed of scattered fibroglandular density. Scattered benign calcifications are seen. No dense spiculated masses or suspicious microcalcifications are identified. No architectural distortion is identified. There is no skin thickening or retraction. There has been no significant change since the prior study. BI/SCRN MAMM (CAD)W/ROD BILAT IMPRESSION: No mammographic signs of malignancy. Routine yearly mammograms recommended. ASSESSMENT CATEGORY: BIRADS Category 1: Negative. A letter regarding these results will be sent to the patient by the facility within 30 days. FOLLOW UP RECOMMENDATION: Yearly follow up mammogram recommended. (A) Approximately 10% of breast cancers are not detected by mammography. A normal mammogram should not delay biopsy of a clinically suspicious abnormality. Electronically Signed: Guero Delarosa MD at 17:00 EDT ,
== END | disposition home or self-care (01) ==
LOC: OPBI 16:12
PROVIDERS: PCP Internal Medicine; Visit Provider Nurse Practitioner Family
DX: Z12.31 Encounter for screening mammogram for malignant neoplasm of breast (principal)
CPT/HCPCS: 77063; 77067